=== PATIENT | female | born 1950 | race Caucasian/White ===

== ENCOUNTER 2021-06-27 02:14 | Emergency (ER) | payer MEDICARE, MEDICAID, SELFPAY ==
--- NOTE | ~2021-06-27 | XR_ITS ---
EXAMINATION: XR CHEST CLINICAL INFORMATION: Fall COMPARISON: None TECHNIQUE: Frontal view of the chest was obtained. Lung bases are not included on this study. FINDINGS: Lung bases are not included on the single AP portable upright image. Imaged portions of the lungs are clear. No consolidation, pneumothorax, or pleural effusion. Sensitivity for effusions is limited. Old healed left-sided rib fractures. No acute rib fractures are identified. Cardiac and mediastinal contours are normal. Calcific atherosclerosis is present in the thoracic arch. XR/XR chest 1V IMPRESSION: Limited assessment of the lung bases are not included on the obtained image. No acute findings.
--- NOTE | ~2021-06-27 | XR_ITS ---
XR/XR tibia fibula RT 2V IMPRESSION: Angulated oblique/spiral fractures of the distal tibial diaphysis and proximal fibular diaphysis with mild comminution along the margins and significant surrounding gas in the soft tissues. EXAMINATION: XR TIBIA AND FIBULA, RIGHT CLINICAL INFORMATION: Fracture, ( COMPARISON: None TECHNIQUE: AP and lateral views of the right tibia and fibula were obtained. FINDINGS: There is a spiral fracture of the distal tibial diaphysis with mild comminution along the margins and apex anterior angulation. There is external rotation of the distal fragment relative to the proximal fragment. Additionally, there is a mildly comminuted oblique fracture of the proximal fibular diaphysis with apex anterior angulation. Gas is present throughout the soft tissues surrounding these fractures, consistent with an open wound. Imaged portions of the knee and ankle are unremarkable.
[2021-06-27 02:24] VITALS: BP 128/80; BP 141/84; PULSE 82; PULSE 88; RESP 16; TEMP 36.8; O2SAT 98; BMI 16.8
--- NOTE | 2021-06-27 02:31 | ED_ITS ---
HPI - Fall General Chief Complaint: Extremity Injury, Lower Stated Complaint: BROKEN LEG Time Seen by Provider: 06/27/21 02:28 Source: patient Mode of arrival: EMS History of Present Illness HPI Narrative: 70-year-old female history of alcohol dependency and last alcoholic drink was yesterday she states that she has fallen multiple times over the weekend the last being today when she attempted to go to the store patient states that she fell twice in the parking lot and then had to drag herself back to her house and when she got there she said her right leg hurt badly and activated her pendant alarm for EMS. As per EMS they state that she had bleeding from the right ankle. Related Data Allergies Allergy/AdvReac Type Severity Reaction Status Date / Time No Known Allergies Allergy Verified 06/27/21 02:29 Review of Systems Review of Systems: Pertinent positives and negatives as stated in HPI 10 point review of systems is otherwise negative. [facility] Past Medical History Source: nursing notes reviewed Medical History Depression ETOH abuse Loss of balance Occasional tremors Social History Social History Advance Directives: No Advance Directives Information Provided: Yes Physical Exam Vital Signs: Vital Signs: Last Vital Signs Temp 98.2 F 06/27/21 02:24 Pulse 82 06/27/21 02:24 Resp 16 06/27/21 02:24 BP 141/84 H 06/27/21 02:24 Pulse Ox 98 06/27/21 02:24 BMI result Body Mass Index 16.8 Blood Thinners: Daily ask PRIMARY SURVEY A: Airway intact B: Bilateral, symmetrical breath sounds C: Bilateral DP/PT/femoral/radial palpable pulses symmetrical, ABD soft/ non- distended, PELVIS: stable/non-tender BP:141/84 D: GCS-15, motor and sensory grossly intact, FAST not performed E: No back abrasions, no cervical/thoracic/lumbar vertebral tenderness/step-off, TAJ- not performed SECONDARY SURVEY HEAD: NC/AT, no lacerations/contusions noted; EARS: no hemotympanum; EYES: 2mm PERRLA, EOMI, conjunctival hemorrhage noted to left eye NOSE: no deformity, wnl; OROPHARYNX: able to open mouth and tongue is midline without laceration FACE: without abrasions, lacerations, contusions, or ttp NECK: No c-collar, no cervical spine tenderness; CHEST WALL/THORAX: no clavicle deformity or ttp, no sternum or rib deformity, no crepitus and no ttp RUE: fROM at shoulder/elbow/wrist and neurovascular intact, no deformity, no abrasions/lacerations, cap refill <3s, there is abrasion with skin tear noted to the forearm area as well as multiple areas of ecchymosis to the forearm and dorsum of the hand LUE: fROM at shoulder/elbow/wrist and neurovascular intact, no deformity, no abrasions/lacerations, cap refill <3s, intermittent ecchymosis noted ABD: soft, non-tender, non-distended, no contusions or ecchymosis PELVIS: stable, non-tender : external genitalia grossly within normal limits RLE: fROM at hip/there is noted deformity at the distal tibia with open fracture there is obvious subcutaneous fat protruding through compartments are soft and DP/PT are dopplerable but foot is more cool to touch than the left LLE: fROM at hip/knee/ankle neurovascular intact ROS: 10 point review of systems has been completed. Please refer to HPI for pertinent negative and positives. A/P: 70-year-old female with history of alcohol use and multiple falls who presents with open fracture of the right tibia with soft compartments and although the foot is cool to touch pulses are dopplerable. There are no neurologic findings to prompt head CT or C-spine Fryer to transfer. Patient will receive antibiotics, Tdap, pain medications. - Labs (CBC, CMP, Troponin, PT/INR, PTT) - CT: head, c-spine, Thorax w/wo contrast and T-spine recon, Abd/pelvis w/wo contrast and L-spine recon - XR right tib/fib - Type and Screen - Blood Alcohol - Tetanus - fentanyl, Toradol - Consult: [facility] Trauma Service Course Course Course Narrative: 70-year-old female with history and clinical presentation consistent with traumatic injury to the right lower extremity secondary to with comminuted open fracture of the tib-fib and otherwise neurovascularly intact. Patient is hemodynamically stable in this case was discussed with p.mJeanne see Trauma Service, Dr Vick who accepts patient in transfer as trauma consult. MDM - Fall Lab Data Result diagrams: 06/27/21 02:24 06/27/21 02:24 Labs: Lab Results 06/27/21 06/27/21 06/27/21 Range/Units 02:24 02:24 02:24 WBC 10.7 (4.8-10.8) X10*3/uL RBC 3.64 L (4.20-5.50) X10*6/uL Hgb 11.7 L (12.0-16.0) g/dl Hct 35.8 L (37.0-47.0) % MCV 98.4 H (80.0-98.0) fL MCH 32.1 (27.0-33.0) pg MCHC 32.7 (31.0-35.0) g/dl RDW 14.1 (11.0-16.0) % Plt Count 321 (160-400) X10*3/uL MPV 10.0 (9.4-12.3) fL Immature Gran % (Auto) 0.3 (0.0-0.4) % Neut % (Auto) 74.7 H (45-73) % Lymph % (Auto) 16.1 L (20-40) % [place] % (Auto) 8.2 (2-11) % Eos % (Auto) 0.4 (0-4) % Baso % (Auto) 0.3 (0-2) % Lymph # (Auto) 1.7 (1.2-4.9) X10*3/uL [place] # (Auto) 0.9 (0.1-1.2) X10*3/uL Eos # (Auto) 0.0 (0.0-0.4) X10*3/uL Baso # (Auto) 0.0 (0.0-0.2) X10*3/uL Abs Immat Gran (auto) 0.03 (0.00-0.03) X10*3/uL Absolute Neuts (auto) 8.0 (2.0-8.3) x10*3/uL Absolute Nucleated RBC 0.000 (0.0-0.012) X10*3/uL Nucleated RBC % (auto) 0.0 (0.0-0.2) /100WBC PT 10.1 (9.9-13.0) SEC INR 0.9 (0.9-1.1) Sodium 139 (135-145) mmol/L Potassium 4.5 (3.3-5.1) mmol/L Chloride 105 (96-108) mmol/L Carbon Dioxide 18 L (22-29) mmol/L Anion Gap 21 H (12-20) BUN 11 (9-16) mg/dL Creatinine 0.72 (0.5-1.4) mg/dL Estim Creat Clear Calc 58.4 Estimated GFR > 60 Random Glucose 100 (60-115) mg/dL Calcium 9.4 (8.4-10.2) mg/dL Total Bilirubin 0.3 (0.0-1.0) mg/dL AST 32 H (5-31) U/L ALT 28 (0-31) U/L Alkaline Phosphatase 81 (39-117) U/L Total Creatine Kinase 190 H (26-140) U/L Total Protein 6.6 (6.5-8.0) g/dL Albumin 4.1 (3.5-5.0) g/dL Ethyl Alcohol mg/dL COVID-19 (NANDA) (Negative) COVID-19 Clin Com Blood Type 06/27/21 06/27/21 06/27/21 Range/Units 02:24 02:24 02:30 WBC (4.8-10.8) X10*3/uL RBC (4.20-5.50) X10*6/uL Hgb (12.0-16.0) g/dl Hct (37.0-47.0) % MCV (80.0-98.0) fL MCH (27.0-33.0) pg MCHC (31.0-35.0) g/dl RDW (11.0-16.0) % Plt Count (160-400) X10*3/uL MPV (9.4-12.3) fL Immature Gran % (Auto) (0.0-0.4) % Neut % (Auto) (45-73) % Lymph % (Auto) (20-40) % [place] % (Auto) (2-11) % Eos % (Auto) (0-4) % Baso % (Auto) (0-2) % Lymph # (Auto) (1.2-4.9) X10*3/uL [place] # (Auto) (0.1-1.2) X10*3/uL Eos # (Auto) (0.0-0.4) X10*3/uL Baso # (Auto) (0.0-0.2) X10*3/uL Abs Immat Gran (auto) (0.00-0.03) X10*3/uL Absolute Neuts (auto) (2.0-8.3) x10*3/uL Absolute Nucleated RBC (0.0-0.012) X10*3/uL Nucleated RBC % (auto) (0.0-0.2) /100WBC PT (9.9-13.0) SEC INR (0.9-1.1) Sodium (135-145) mmol/L Potassium (3.3-5.1) mmol/L Chloride (96-108) mmol/L Carbon Dioxide (22-29) mmol/L Anion Gap (12-20) BUN (9-16) mg/dL Creatinine (0.5-1.4) mg/dL Estim Creat Clear Calc Estimated GFR Random Glucose (60-115) mg/dL Calcium (8.4-10.2) mg/dL Total Bilirubin (0.0-1.0) mg/dL AST (5-31) U/L ALT (0-31) U/L Alkaline Phosphatase (39-117) U/L Total Creatine Kinase (26-140) U/L Total Protein (6.5-8.0) g/dL Albumin (3.5-5.0) g/dL Ethyl Alcohol 83 mg/dL COVID-19 (NANDA) Negative (Negative) COVID-19 Clin Com See Note Blood Type A Positive Critical Care Time Critical Care Time Critical Care Time: Yes Total Critical Care Time: 30 Attestation: I personally attest to this time spent taking care of the patient. Discharge Plan Discharge Clinical Impression: Open fracture of right fibula and tibia, Fall Patient Disposition: Xfer Acute Care Hospital Transfer Details: Open tib-fib fracture, Trauma Service
[2021-06-27 02:34] LABS: MANUAL DIFF FLAG NO
[2021-06-27 02:35] LABS: Basophils Percent Auto 0.3 % (0-2); Eosinophils Percent Auto 0.4 % (0-4); Hematocrit 35.8 % (37.0-47.0); Hemoglobin 11.7 g/dl (12.0-16.0); Imm Gran Abs Auto 0.03 X10*3/uL (0.00-0.03); Imm Gran Pct Auto 0.3 % (0.0-0.4); Lymphocytes Absolute Auto 1.7 X10*3/uL (1.2-4.9); Lymphocytes Percent Auto 16.1 % (20-40); Mean Corpuscular HGB Conc 32.7 g/dl (31.0-35.0); Mean Corpuscular Hemoglobin 32.1 pg (27.0-33.0); Mean Corpuscular Volume 98.4 fL (80.0-98.0); Monocytes Absolute Auto 0.9 X10*3/uL (0.1-1.2); Monocytes Percent Auto 8.2 % (2-11); Neutrophils Percent Auto 74.7 % (45-73); Platelet Count 321 X10*3/uL (160-400); Red Blood Count 3.64 X10*6/uL (4.20-5.50); Red Cell Distribution Width 14.1 % (11.0-16.0); White Blood Count 10.7 X10*3/uL (4.8-10.8)
[2021-06-27 02:40] LABS: INTERNATIONAL NORM RATIO 0.9 (0.9-1.1); Prothrombin Time 10.1 SEC (9.9-13.0)
[2021-06-27] MEDS: Ketorolac Tromethamine 30 MG/ML VIAL 15 MG IVPUSH (02:42)
[2021-06-27] MEDS: Piperacillin Sodium/Tazobactam 3.375 GM in 0.9 % Sodium Chloride 50 ML IV (02:45)
[2021-06-27] MEDS: Diphth,Pertus(ACell),Tet Adult 0.5 ML SYRINGE IM (02:46)
[2021-06-27] MEDS: vancomycin HCL 750 MG in 0.9 % Sodium Chloride 250 ML 265 MG IV (02:46)
--- NOTE | 2021-06-27 02:49 | PC.NURSE ---
CALL OUT TO [facility] TRANSFER LINE ([phone]) @[phone]
[2021-06-27 02:51] LABS: Ethanol 83 mg/dL
[2021-06-27 02:52] LABS: COVID-19 Test Negative (Negative)
[2021-06-27 02:56] LABS: Alanine Aminotransferase 28 U/L (0-31); Albumin Level 4.1 g/dL (3.5-5.0); Alkaline Phosphatase 81 U/L (39-117); Anion Gap 21 (12-20); Aspartate Amino Transferase 32 U/L (5-31); Bilirubin Total 0.3 mg/dL (0.0-1.0); Blood Urea Nitrogen 11 mg/dL (9-16); Calcium 9.4 mg/dL (8.4-10.2); Carbon Dioxide 18 mmol/L (22-29); Chloride 105 mmol/L (96-108); Creatinine Clr Calc Pharmacy 58.4; Estimated Glomerular Filt Rate > 60; Glucose Random 100 mg/dL (60-115); Potassium 4.5 mmol/L (3.3-5.1); Sodium 139 mmol/L (135-145); Total Protein 6.6 g/dL (6.5-8.0)
--- NOTE | 2021-06-27 02:56 | PC.NURSE ---
pt a&o, no sob or chest pain. pt able to speak in full sentence and able to answer questions appropriately. 2 Iv's placed 18 in right ac, 20 above left ac. Right leg is stabilized, bleeding is under control. Positive pedal pulses to leg and area marked. Pt medicated for pain. Antibiotic given per Jun. X-ray completed. Provider into assess pt. Pt being transferred to [facility].
[2021-06-27] MEDS: fentaNYL citrate/PF 100 MCG/2 ML VIAL 25 MCG IVPUSH ×2 (03:01→03:49)
[2021-06-27 03:56] VITALS: BP 106/68; RESP 20; O2SAT 98
== END 2021-06-27 04:08 | disposition short-term general hospital (02) ==
PROVIDERS: Emergency Provider Student in an Organized Health Care Education/Training Program
DX: F10.20 Alcohol dependence, uncomplicated (principal); Y90.4 Blood alcohol level of 80-99 mg/100 ml; S82.251B Displaced comminuted fracture of shaft of right tibia, initial encounter for open fracture type I or II; S82.451B Displaced comminuted fracture of shaft of right fibula, initial encounter for open fracture type I or II; Z20.822 Contact with and (suspected) exposure to COVID-19; W01.0XXA Fall on same level from slipping, tripping and stumbling without subsequent striking against object, initial encounter; Z91.81 History of falling; Y93.89 Activity, other specified; Y92.481 Parking lot as the place of occurrence of the external cause; Y99.9 Unspecified external cause status
CPT/HCPCS: 36415; 71045; 73590; 80053; 82077; 82550; 85025; 85610; 86850; 86900; 86901; 87635; 90471; 90715; 96365; 96375; 96376; 99285; J1885; J2543; J3010; J3370

== ENCOUNTER 2021-07-18 13:09 | Emergency (ER) | payer MEDICARE, MEDICAID, SELFPAY ==
--- NOTE | 2021-07-18 13:24 | ED.PSYCH ---
HPI - Psych General Chief Complaint: General Medical Stated Complaint: SI sec 12 Time Seen by Provider: 07/18/21 13:24 Source: patient Mode of arrival: EMS Limitations: no limitations History of Present Illness HPI Narrative: on section 12 - states she threatened to throw herself in front of a car. patient is at [facility] for R tib fracture rehab - she notes she doesn't like it there and doesn't trust people. she states I never said that. I told them I wanted to go home. I said I would get on the highway and hitch a ride. I never said I wanted to kill myself. complaint: feels depressed and anxiety Onset (ago): day(s) (today) Duration: constant History of same: No Relieving factors: none Exacerbating factors: other (doesn't like being at rehab) Context: significant life stressor Associated psychiatric symptoms: none Associated symptoms: denies other symptoms Treatments prior to arrival: placed on mental health hold Related Data Allergies Allergy/AdvReac Type Severity Reaction Status Date / Time No Known Allergies Allergy Verified 06/27/21 02:29 Review of Systems Review of Systems: Constitutional : No Fever, No Chills ENT/Mouth : No Ear Pain, No Nasal Congestion, No sore throat Eyes: No Eye Pain, No Swelling, No Redness Cardiovascular : No Chest Pain, No SOB Respiratory : No Cough, No Sputum, No Dyspnea Gastrointestinal : No Nausea, No Vomiting, No Diarrhea, No Hematochezia, No Melena Genitourinary : No Dysuria, No Urinary Frequency, No Hematuria Musculoskeletal : No Myalgias Skin : No Skin Lesions, No rash Neuro : No Weakness, No Numbness, No Paresthesias, No Dizziness, No Headache Psych : positive Anxiety, no Depression, no SI/HI Heme/Lymph: No Lymphadenopathy Endocrine : No Polyuria, No Polydipsia All other systems reviewed and are negative [facility] Past Medical History Attestation statement: The following information was validated with the patient. Medical History Depression ETOH abuse Loss of balance Occasional tremors Social History Social History Alcohol intake: former Patient Tobacco Use Status: Former Tobacco user Use of substances other than those prescribed or required for medical reasons: No Advance Directives: No Advance Directives Information Provided: No Physical Exam Vital Signs: Vital Signs: Last Vital Signs Temp 98.9 F 07/18/21 13:57 Pulse 65 07/18/21 13:57 Resp 14 07/18/21 13:57 BP 128/71 07/18/21 13:57 Pulse Ox 96 07/18/21 13:57 BMI result Body Mass Index 23.8 Appearance: Alert. Oriented X3. No acute distress. Calm and cooperative Eyes: Pupils equal, round and reactive to light. ENT: Pharynx normal. Neck: Normal inspection. Neck supple. CVS: Normal heart rate and rhythm. Pulses normal. Respiratory: No respiratory distress. Breath sounds normal. Abdomen: Soft and nontender. Skin: Skin warm and dry. Normal skin color. Normal skin turgor. Extremities: No lower extremity edema. R leg in cast above knee - can move and wiggle toes - sensation intact toes warm to touch Neuro: Oriented X 3. No motor deficit. No sensory deficit. Course Course Course Narrative: cleared by CARE team. will refer to PT/CM Patient placed in physician observation at 427pm . The indication for observation is that the patient needs more time to speak to CM about her issues at rehab center. At this time the patient is well developed well nourished, lungs clear, CV RRR, abd nontender, neuro is intact. MDM - Psych MDM Narrative Medical decision making narrative: 70 yo female with hx of depression and ETOH abuse currently in rehab for R tib fracture - at this time here on section 12 but she is denying SI will order basic labs and discuss with CARE team vs N dispo per their recommendations Lab Data Result diagrams: 07/18/21 14:18 07/18/21 14:18 Labs: Lab Results 07/18/21 07/18/21 07/18/21 Range/Units 14:18 14:18 14:18 WBC 6.7 (4.8-10.8) X10*3/uL RBC 3.72 L (4.20-5.50) X10*6/uL Hgb 11.7 L (12.0-16.0) g/dl Hct 36.9 L (37.0-47.0) % MCV 99.2 H (80.0-98.0) fL MCH 31.5 (27.0-33.0) pg MCHC 31.7 (31.0-35.0) g/dl RDW 14.1 (11.0-16.0) % Plt Count 616 H D (160-400) X10*3/uL MPV 9.1 L (9.4-12.3) fL Immature Gran % (Auto) 0.2 (0.0-0.4) % Neut % (Auto) 67.6 (45-73) % Lymph % (Auto) 19.7 L (20-40) % [place] % (Auto) 11.4 H (2-11) % Eos % (Auto) 0.3 (0-4) % Baso % (Auto) 0.8 (0-2) % Lymph # (Auto) 1.3 (1.2-4.9) X10*3/uL [place] # (Auto) 0.8 (0.1-1.2) X10*3/uL Eos # (Auto) 0.0 (0.0-0.4) X10*3/uL Baso # (Auto) 0.1 (0.0-0.2) X10*3/uL Abs Immat Gran (auto) 0.01 (0.00-0.03) X10*3/uL Absolute Neuts (auto) 4.5 (2.0-8.3) x10*3/uL Absolute Nucleated RBC 0.000 (0.0-0.012) X10*3/uL Nucleated RBC % (auto) 0.0 (0.0-0.2) /100WBC Sodium 139 (135-145) mmol/L Potassium 5.1 (3.3-5.1) mmol/L Chloride 105 (96-108) mmol/L Carbon Dioxide 23 (22-29) mmol/L Anion Gap 16 (12-20) BUN 11 (9-16) mg/dL Creatinine 0.71 (0.5-1.4) mg/dL Estim Creat Clear Calc 59.1 Estimated GFR > 60 Random Glucose 87 (60-115) mg/dL Calcium 10.3 H D (8.4-10.2) mg/dL Magnesium 2.0 (1.6-2.6) mg/dL Total Bilirubin 0.3 (0.0-1.0) mg/dL Direct Bilirubin < 0.2 (0.0-0.5) mg/dL AST 21 (5-31) U/L ALT 27 (0-31) U/L Alkaline Phosphatase 116 D (39-117) U/L Total Protein 6.7 (6.5-8.0) g/dL Albumin 3.9 (3.5-5.0) g/dL COVID-19 (NANDA) Negative (Negative) COVID-19 Clin Com See Note Discharge Plan Discharge Clinical Impression: Adjustment disorder Qualifiers: Adjustment disorder type: with depressed mood Qualified Code(s): F43.21 - Adjustment disorder with depressed mood Patient Disposition: Still a Patient
[2021-07-18 13:30] VITALS: BP 125/88; PULSE 67; RESP 18; TEMP 37; O2SAT 97; BMI 23.8
[2021-07-18 13:33] VITALS: BP 168/78; PULSE 70; O2SAT 98
[2021-07-18 13:57] VITALS: BP 128/71; PULSE 65; RESP 14; TEMP 37.2; O2SAT 96
--- NOTE | 2021-07-18 14:20 | PC.NURSE ---
pt labs drawn and call being placed to care team for eval
--- NOTE | 2021-07-18 14:23 | PC.NURSE ---
spoke with radha from care team- they WILL see pt at some time today. do no refer to [facility] at this time.
[2021-07-18 14:24] LABS: MANUAL DIFF FLAG NO
[2021-07-18 14:28] LABS: Basophils Absolute Auto 0.1 X10*3/uL (0.0-0.2); Basophils Percent Auto 0.8 % (0-2); Eosinophils Percent Auto 0.3 % (0-4); Hematocrit 36.9 % (37.0-47.0); Hemoglobin 11.7 g/dl (12.0-16.0); Imm Gran Abs Auto 0.01 X10*3/uL (0.00-0.03); Imm Gran Pct Auto 0.2 % (0.0-0.4); Lymphocytes Absolute Auto 1.3 X10*3/uL (1.2-4.9); Lymphocytes Percent Auto 19.7 % (20-40); Mean Corpuscular HGB Conc 31.7 g/dl (31.0-35.0); Mean Corpuscular Hemoglobin 31.5 pg (27.0-33.0); Mean Corpuscular Volume 99.2 fL (80.0-98.0); Mean Platelet Volume 9.1 fL (9.4-12.3); Monocytes Absolute Auto 0.8 X10*3/uL (0.1-1.2); Monocytes Percent Auto 11.4 % (2-11); Neutrophils Absolute Auto 4.5 x10*3/uL (2.0-8.3); Neutrophils Percent Auto 67.6 % (45-73); Platelet Count 616 X10*3/uL (160-400); Red Blood Count 3.72 X10*6/uL (4.20-5.50); Red Cell Distribution Width 14.1 % (11.0-16.0); White Blood Count 6.7 X10*3/uL (4.8-10.8)
[2021-07-18 14:46] LABS: Alanine Aminotransferase 27 U/L (0-31); Albumin Level 3.9 g/dL (3.5-5.0); Alkaline Phosphatase 116 U/L (39-117); Anion Gap 16 (12-20); Aspartate Amino Transferase 21 U/L (5-31); Bilirubin Direct < 0.2 mg/dL (0.0-0.5); Bilirubin Total 0.3 mg/dL (0.0-1.0); Blood Urea Nitrogen 11 mg/dL (9-16); Calcium 10.3 mg/dL (8.4-10.2); Carbon Dioxide 23 mmol/L (22-29); Chloride 105 mmol/L (96-108); Creatinine Clr Calc Pharmacy 59.1; Estimated Glomerular Filt Rate > 60; Glucose Random 87 mg/dL (60-115); Potassium 5.1 mmol/L (3.3-5.1); Sodium 139 mmol/L (135-145); Total Protein 6.7 g/dL (6.5-8.0)
[2021-07-18 14:48] LABS: COVID-19 Test Negative (Negative); IDNOW Serial# 16C4AD1C
--- NOTE | 2021-07-18 16:04 | MHC.CARE ---
CARE Team meets with pt who is brought to the ED on a sect 12 issued by [facility]. Sect 12 sites that pt has made suicidal threats, however, pt denies making these statements. Pt denies SI today, and denies feeling suicidal recently. Pt denies hx of suicide attempts. She reports one prior brief (1-2 days) hospitalization on an inpt psych unit approx 5 years ago for depression. She is on an SSRI prescribed by her PCP. She identifies that she is miserable at [facility] and wants to go home. She is future oriented, thinking about her dog, Adalberto, who she is looking forward to seeing. Case is discussed with Dr. Lo, who agrees that pt does not pose a risk to herself at this time. CARE Team speaks with Leatha- case management who is going to meet with pt and explore options as pt is not willing to return to [facility] at this time.
[2021-07-18 16:38] VITALS: BP 125/69; PULSE 68; RESP 16; TEMP 36.9; O2SAT 96
--- NOTE | 2021-07-18 16:45 | PHA.MEDREC ---
Pharmacy Consult ? Medication Reconciliation Pharmacy has completed the medication reconciliation.
[2021-07-18 16:53] LABS: Appearance Urine CLOUDY; Color Urine YELLOW; Glucose Urine UA NEG (NEG); Leukocyte Esterase Urine 2+ (NEG); Nitrite Urine NEG (NEG); PH 5.5 (5.0-8.0); Specific Gravity - Urine >= 1.030 (1.005-1.025); UACC Culture Trigger YES; Urine Blood 1+ (NEG); Urine Ketones 5 MG/DL (NEG); Urine Protein NEG (NEG-TRACE)
[2021-07-18 16:59] LABS: Bacteria Urine 1+ /LPF; Mucus Urine 3+ /LPF; Squamous Epithelial Cell Urine 1+ /LPF; WBC Clumps Urine NOTED
[2021-07-18 19:38] VITALS: BP 135/75; PULSE 78; RESP 16; TEMP 37.1; O2SAT 95
--- NOTE | 2021-07-18 20:51 | MHC.CM.ED ---
Addendum entered by Monika Riley 07/18/21 21:07: CM to call Stephanie at [facility] 07/19 ([phone]) for information on patient living conditions. PT evaluation pending. Original Note: CM met with pt. A&Ox3. Pt refuses to consider returning to STR. States facility was awful, did nothing for her and she can do the exercises for her leg at home. CM spoke with patient at length regarding need for safe discharge, and that with her non-weight bearing on R fx leg, and living alone, she should go to rehab. Tried to speak with patient about acute rehab and how they are not a group home, but pt is resistant to any discussion about STR in any facility. Pt is agreeable to home PT, however, CM did express concerns as to the safety of going home. Pt states she will walk on her leg with her walker if she has too. Pt has been cleared by Care Team for SI. Pt appears to have capacity, but does seem to be making a poor decision. Pt is willing to remain overnight for a PT evaluation in the morning. Perhaps, when weight bearing is not possible, pt will make a better decision regarding discharge. No referrals made at this time. Pt lives in elderly housing and has [employer] and laundry services with [facility]. [employer] is 4 hours/week. They come --. Pt declines to complete HCP at this time. Pt is vax/boosted with [employer]. Cannot remember when and has VAX card at home. D/C plan is home with [facility] per patient request. Will need transportation home. CM will follow for d/c needs.
[2021-07-19 00:21] VITALS: BP 136/69; PULSE 73; RESP 16; TEMP 36.5; O2SAT 96
[2021-07-19 03:58] VITALS: RESP 16
[2021-07-19 08:09] VITALS: BP 117/77; PULSE 91; RESP 14; TEMP 36.4; O2SAT 96
--- NOTE | 2021-07-19 11:02 | MHC.CM.ED ---
Met with pt after PT and psych eval: Psych cleared for INPT needs: PT recommending STR : pt is very strongly declining STR and will not consider any options other than a return to home. You can't hold me hostage, I have a home to go to, I have electricity, cabinets full of non perishable food and neighbors who help me. Pt states she has a cell phone and will call her ortho surgeon and PCP when she gets home. Pt states her apartment keys are under her mat. CM tried to persuade pt to accept [facility] services to which she declined: for what? they stay 10 minutes then leave. Pt then dismissed CM and declined to answer any more questions. Discussed with ED MD: CM will file an elder at risk with [facility] - will arrange BLS transport as pt has right leg which is casted resulting in a high fall risk potential.
[2021-07-19 11:24] VITALS: BP 116/80; PULSE 87; RESP 13; O2SAT 96
== END 2021-07-19 13:03 | disposition home or self-care (01) ==
PROVIDERS: Emergency Provider Emergency Medicine; PCP Internal Medicine
DX: F43.21 Adjustment disorder with depressed mood (principal); N39.0 Urinary tract infection, site not specified; Z20.822 Contact with and (suspected) exposure to COVID-19; R45.851 Suicidal ideations; F32.A Depression, unspecified; F41.9 Anxiety disorder, unspecified; Z72.89 Other problems related to lifestyle
CPT/HCPCS: 36415; 80048; 80076; 81001; 83735; 85025; 87086; 87635; 97162; 99285

== ENCOUNTER 2023-08-15 08:51 | Emergency (ER) | payer MEDICARE, MEDICAID, SELFPAY ==
--- NOTE | ~2023-08-15 | XR_ITS ---
EXAMINATION: XR WRIST, LEFT CLINICAL INFORMATION: Post reduction attempt COMPARISON: Left hand and wrist 08/15/2023 TECHNIQUE: PA of the left wrist. FINDINGS: There is either a cast or splint material in place. Impacted fracture of the distal radius with slight volar angulation is similar to the prior study obtained earlier today. There is associated soft tissue swelling. The ulnar styloid is intact. Advanced degenerative change at the first carpometacarpal joint is again noted. No other fractures are seen. XR/XR wrist LT 2V IMPRESSION: Impacted distal radial fracture.
--- NOTE | ~2023-08-15 | XR_ITS ---
EXAMINATION: XR HAND/WRIST, LEFT CLINICAL INFORMATION: Radial pain after falling COMPARISON: None TECHNIQUE: PA, lateral, and oblique views of the left hand and wrist. FINDINGS: Impacted fracture distal radius noted with slight volar angulation. There is associated soft tissue swelling. The ulnar styloid is intact. There is advanced degenerative change at the first CMC joint. No other fractures are seen. XR/XR hand wrist LT IMPRESSION: Impacted distal radial fracture.
[2023-08-15 08:56] VITALS: BP 152/90; PULSE 80; O2SAT 96
[2023-08-15 09:04] VITALS: BP 184/89; PULSE 65; RESP 18; TEMP 36.6; O2SAT 98; BMI 19.9
[2023-08-15 09:10] VITALS: PULSE 65
--- NOTE | 2023-08-15 09:15 | PC.NURSE ---
pt is alert and oriented, skin pwd, respirations even and unlabored, pt reports having a fall outside last Saturday, landing on pavement on her left arm, denies head strike, no loc is taking asa, pt reports frequent falls because according to the pt she just looses her balance, it was a unwitnessed fall. pt's arm is discolored and swollen all the way up to her elbow area
--- NOTE | 2023-08-15 09:52 | ED.GENADULT ---
HPI - General Adult General Chief complaint: Fall Stated complaint: FALL, LUE PAIN/SWELLING,-THINNERS,-LOC PER EMS Time Seen by Provider: 08/15/23 09:52 Source: patient, EMS and RN notes reviewed Mode of arrival: EMS Limitations: physical limitation (hard of hearing) History of Present Illness HPI narrative: Patient is a 72-year-old female with history of loss of balance, frequent falls, ETOH abuse, depression, hearing impairment presenting to the emergency department with left wrist and hand pain and swelling as well as bruising. Patient states that she fell last Saturday on pavement onto outstretched hands. Denies head strike, loss of consciousness, anticoagulation. Patient is on aspirin. She denies any decreased range of motion to fingers. Denies taking any [id number] medications for her symptoms. MD complaint: Left wrist and hand pain Onset (ago): week(s) Location: left and upper extremity Radiation: non-radiation Severity: moderate Quality: aching Pain Consistency: colicky Relieving factors: rest Exacerbating factors: movement Associated symptoms: denies other symptoms Treatments prior to arrival: none Related Data Home Medications ?Medication ?Instructions ?Recorded ?Confirmed aspirin 81 mg tablet,delayed 1 tab PO DAILY 07/18/21 07/18/21 release atorvastatin 40 mg tablet 1 tab PO DAILY 07/18/21 07/18/21 buspirone 30 mg tablet 0.5 tab PO BID 07/18/21 07/18/21 fluoxetine 20 mg capsule 3 cap PO DAILY 07/18/21 07/18/21 primidone 50 mg tablet 2 tab PO TID 07/18/21 07/18/21 rizatriptan 10 mg tablet 1 tab PO DAILY PRN Headache 07/18/21 07/18/21 Previous Rx's ?Medication ?Instructions ?Recorded cefuroxime axetil 500 mg tablet 500 mg PO BID 7 days #14 tabs 07/19/21 Allergies Allergy/AdvReac Type Severity Reaction Status Date / Time No Known Allergies Allergy Verified 08/15/23 09:07 Review of Systems Review of Systems: As per HPI. Yes all other systems are reviewed and are negative Constitutional: Constitutional: Reports as per HPI PMFSH Past Medical History Medical History Depression ETOH abuse Loss of balance Occasional tremors Social History Social History Alcohol intake: former Patient Tobacco Use Status: Former Tobacco user Smoked in Last 30 Days: Yes Use of substances other than those prescribed or required for medical reasons: No Advance Directives: No Do you have a plan to hurt others: No Plan Physical Exam ED Vital Signs: Vital Signs - 24 hr 08/15/23 09:04 08/15/23 09:10 08/15/23 14:36 Temperature 97.8 F Pulse Rate 65 65 69 Respiratory Rate 18 18 Blood Pressure 184/89 H 178/87 H Pulse Oximetry 98 97 Oxygen Delivery Method Room Air Room Air BMI result Body Mass Index 19.9 Vital signs have been reviewed and appear to be correct. Blood pressure elevated. Heart rate normal. Respiratory rate normal. Temperature normal. Oxygen saturation normal. Const General: cooperative, healthy appearing and no acute distress Orientation/consciousness: oriented to person, oriented to place, oriented to time and patient oriented x3 Limitations: no limitations HENMT Head: Yes normocephalic and Yes atraumatic Ears: external ears normal General nose exam: Normal external nose present Face and sinus: Yes face symmetric Mouth: oropharynx normal and moist mucous membranes Throat: Yes uvula midline Eyes Pupils: Equal, round and reactive pupils present Neck Neck: Yes normal visual inspection and Yes supple Resp Effort & Inspection: normal respiratory effort and able to speak in complete sentences Auscultation: clear to auscultation bilaterally Cardio Rate: regular rate Rhythm: regular rhythm Heart sounds: S1 normal heart sound present and S2 normal heart sound present GI Palpation (GI): Soft to palpation and nontender Auscultation: normoactive bowel sounds General: Yes no CVA tenderness Back/Spine/Pelvis Back: no CVA tenderness Skin General skin exam: elasticity normal and turgor normal Neuro General: oriented to person, oriented to place, oriented to time, patient oriented x3, moves all extremities, no focal motor deficits and CN's II-XI intact bilaterally Cranial nerves: Yes Equal, round and reactive pupils present Cognition (Neuro): normal cognition Extrem General: Yes full ROM, Yes normal exam except as noted, Yes no pedal edema and Yes no calf tenderness Left upper extremity: wrist forearm distal Details: tenderness Location: of the distal radius, swelling Location: other (distal radius), abnormal ROM (decreased ROM to wrist in all directions) Details: held in an abnormal fashion, ecchymosis (healing ecchymosis to radial wrist and dorsal hand) forearm distal - wrist Details: single, normal vascular exam and radial pulse present and hand Details: normal capillary refill, neuromotor exam normal, neurosensory exam normal, tenderness Location: of the dorsal hand Location: over the radial aspect, over the 1st metacarpal and over the 2nd metacarpal, vascular exam Details: radial pulse present, normal ROM of fingers, swelling Location: of the dorsal hand Location: over the radial aspect and ecchymosis Location: of the dorsal hand Location: over the radial aspect Psych Mental Status: mental status grossly normal Affect: normal affect Thought process: Normal thought process present Course Reevaluation(s) Reevaluation #1: I was asked to evaluate the patient, as she was planned to be evaluated by case management and physical therapy which would not happen until tomorrow morning. The patient was demanding to leave the hospital. She came in for a fall resulting in an impacted radius fracture of the left arm. She is splinted and in a sling. The patient walks unsteady at baseline. She reports that she has been like this for 20 years. During my evaluation, the patient is awake, alert and oriented. She continues to state that she wants to leave and would like a ride home as she arrived by ambulance. She states that she has no into come pick her up. I reviewed her chart, she did not have any labs ordered. The patient is quite unsteady on her feet and given that she has a radius fracture will be unable to use a walker. She is able to use a cane with 1 arm still walks unsteady. Given that the patient is awake, alert and oriented and understands risks of leaving especially falls and traumatic injuries related to falls, she will be allowed to leave against medical advice. Time: 17:15 Medications Administered Discontinued Medications Generic Name Dose Route Start Last Admin Trade Name Freq PRN Reason Stop Dose Admin Bupivacaine HCl 10 ml 08/15/23 12:46 08/15/23 13:14 Bupivacaine Mpf 0.25 % 10 Ml Vial INFILTRATI 08/15/23 12:47 10 ml ONCE ONE Administration Procedures Orthopedic Fracture Reduction Fracture #1: Time Out Performed: Yes Side: left Fracture Reduction Location: radius Analgesia: hematoma block Technique: finger traps Post Reduction X-rays Demonstrate: other Post-reduction neuro exam: intact Post-reduction vascular exam: intact Splint Applied: Yes Patient Tolerated Procedure: well and no complications Additional Comments: I saw this patient with the physician assistant wrestling coach. The patient left Colles type fracture. Fracture is impacted and slightly dorsally angulated. The fracture happened 8 days ago. I made an attempt to reduce the fracture despite the age of the injury. I first attempted a hematoma block with 8 mL of 0.25% bupivacaine administered at the fracture site as visualized on ultrasound. This was done under sterile conditions with the skin of the dorsum of the wrist being prepped with chlorhexidine I was not able to aspirate any blood from the fracture hematoma. Nevertheless I injected 8 mL of bupivacaine no in the region of the fracture hematoma. This seemed to provide some analgesics the I was able to hang the left arm by the index and middle fingers using weights at the elbow. After the arm has been hanging for about 10 minutes. I then applied a sugar-tong splint with molding. Unfortunately post reduction x-ray did not show significant improvement in the angulation or the impaction. Medical Decision Making Medical Decision Making MDM Narrative: Patient is a 72-year-old female with history of loss of balance, frequent falls, ETOH abuse, depression, hearing impairment presenting to the emergency department with left wrist and hand pain and swelling as well as bruising. On exam patient is awake, A+Ox3, BP elevated, VS otherwise WNL, afebrile, normal neurological exam without focal deficits, physical exam findings as above. Given reported symptoms and physical exam findings, initial differential includes contusion versus fracture of left wrist/hand. X-ray notable for impacted distal radius fracture. My interpretation is in agreement with the radiologist's interpretation. Spoke with Dr. Singh who recommends splinting. Case discussed with Dr. Wheat who will attempt reduction. Reduction attempted and splint placed by Dr. Wheat, patient placed in sling. RN attempted to ambulate patient and patient very unsteady. Will place patient on physician observation at 15:10 and order PT/case management evaluations. Differential Diagnosis Differential Diagnoses: The differential diagnosis associated with the presentation includes As per MDM. Admission/Observation Consideration of admission/observation: Escalation of care including admission/observation considered Patient would have been admitted to the hospital had their work up had any findings where hospital admission was appropriate and their clinical presentation warranted hospital admission. Consult Healthcare Provider Management of the patient was discussed with: Event Planning Manager (Dr. Singh) Independent Interpretation I performed an independent interpretation of an: Plain X-Ray Interpretation: Impacted distal radius fracture left wrist Radiology Impression Discussion of test interpretation with radiology: I have reviewed the radiologist's reading. Radiologist Impression: XR/XR hand wrist LT IMPRESSION: Impacted distal radial fracture. External Record Review External record reviewed: Inpatient record, Office record and Outpatient record Discharge Plan Discharge Clinical Impression: Distal radius fracture, left Qualifiers: Encounter type: initial encounter Fracture type: closed Patient Disposition: Left Against Medical Advice Instructions: Arm Fracture in Adults (ED), Wrist Fracture in Adults (ED), Splint Care (ED) Additional Instructions: You have a fracture of your left wrist. It is important that you follow-up with orthopedic surgery at the number provided Call tomorrow to make an appointment You are leaving against medical advice before being evaluated by physical therapy Return to the ER if you change your mind inner having difficulty managing activities at home Prescriptions: No Action atorvastatin 40 mg tablet 1 tab PO DAILY primidone 50 mg tablet 2 tab PO TID rizatriptan 10 mg tablet 1 tab PO DAILY PRN (Reason: Headache) aspirin 81 mg tablet,delayed release (DR/EC) 1 tab PO DAILY buspirone 30 mg tablet 0.5 tab PO BID fluoxetine 20 mg capsule 3 cap PO DAILY cefuroxime axetil 500 mg tablet 500 mg PO BID 7 Days Qty: 14 0RF Ref[place]: [facility] [place] Group] Stand Alone Forms: Against Medical Advice Print Language: Danish
[2023-08-15] MEDS: BUPivacaine MPF 0.25 % 10 ML VIAL INFILTRATI (13:14)
--- NOTE | 2023-08-15 13:38 | PC.NURSE ---
Call from [facility]: Carole Brown rider ticket worker reports concern for pt d/t limited community support - pt has one friend she uses as primary emergency contact who is currently in [place]. Injury sustained ~ 1 week ago, unable to care for self at home. Pt declined multiple attempts at assistance from [facility], [facility] ultimately called for wellness check and pt was transported to ED.
[2023-08-15 14:36] VITALS: BP 178/87; PULSE 69; RESP 18; O2SAT 97
--- NOTE | 2023-08-15 15:09 | PC.NURSE ---
Report from Felicitas CLIFFORD. patient awake and alert. skin pwd, resp even and non labored. speaking in full, clear sentences. splint in place to left arm, positive csm. patient denies pain. patient up out of bed using cane and 1 assist by this RN, patient is unsteady on feet, SEED ANALYSIS LABORATORY ASSISTANT aware.
--- NOTE | 2023-08-15 16:55 | PC.NURSE ---
Patient reports she does not want to stay in ED for PT eval, patient states she has walked like this all her life and that she just wants to go home. PA to bedside to see patient, Leatha machine adjuster leader case trim also to bedside.
[2023-08-15 17:46] VITALS: BP 162/80; PULSE 86; RESP 14; TEMP -17.7; TEMP 0; O2SAT 96
--- NOTE | 2023-08-15 18:04 | MHC.CM.ED ---
Patient is expressing desire to go home now. Refuses to stay for PT evaluation. Refuses dinner. CM spoke with patient at length regarding need for PT, to assess for needs at home. Pt refuses. States she lives alone, uses a cane and walker, has a FAMILY MANAGER for laundry, groceries and general help. Her HCP, Joshua Ladonna has . She has a friend, Tracy Torres, who is on vacation in [place]. Pt is A&Ox4. Pt ambulated with cane, with sl unsteady gait, using cane appropriately. Accepts cues to walk slower and to stand first and get her barrings before she moves. Pt states she has been unsteady for 20 years and PT will not help her. She is adamant to go home. Pt is aware she will have to leave AMA. Pt has no one who can pick her up. Both Primary RN and Provider spoke with patient about staying overnight for PT evaluation. Pt will leave. Lyft obtained Patient was able to ambulate to [facility] and get into care independently. Stressed with patient to return if she feels she needs PT.
== END 2023-08-15 17:30 | disposition left against medical advice (07) ==
PROVIDERS: Emergency Provider Emergency Medicine; PCP Internal Medicine
DX: S52.532A Colles' fracture of left radius, initial encounter for closed fracture (principal); M25.532 Pain in left wrist; R26.81 Unsteadiness on feet; W01.0XXA Fall on same level from slipping, tripping and stumbling without subsequent striking against object, initial encounter; Y93.9 Activity, unspecified; Y92.9 Unspecified place or not applicable; Y99.8 Other external cause status; Z79.899 Other long term (current) drug therapy
CPT/HCPCS: 25605; 29105; 73100; 73110; 73130; 99284; J0665